=== PATIENT | male | born 1990 | race African-American/Black ===

== ENCOUNTER 2021-02-22 17:48 | Emergency (ER) | payer MEDICAID ==
[~2021-02-22] VITALS: Ht 170.2 cm; Wt 68.2 kg
[2021-02-22 17:58] VITALS: BP 143/100
[2021-02-23] MEDS ORDERED: NO HOME MEDS (02:08)
[2021-02-23] MEDS ORDERED: iohexol 350MG/ML 100ml bottle IV ONE (02:16)
== END 2021-02-22 18:44 | disposition home or self-care (01) ==
LOC: ER 17:49
DX: Z00.8 Encounter for other general examination (principal); F10.129 Alcohol abuse with intoxication, unspecified; Y90.9 Presence of alcohol in blood, level not specified
CPT/HCPCS: 99283; Q9967

== ENCOUNTER 2021-02-22 23:47 | Inpatient (IN) | payer MEDICAID, OTHER ==
[~2021-02-22] VITALS: Ht 167.6 cm; Wt 77.0 kg
[2021-02-23 00:23] LABS: BASOPHILS # (AUTO) 0.2 X10'3 (0-0.2); BASOPHILS % (AUTO) 1.2 % (0-1); EOSINOPHILS # (AUTO) 0.3 X10'3 (0-0.9); EOSINOPHILS % (AUTO) 1.8 % (0-6); HEMATOCRIT 49.3 % (42.0-52.0); HEMOGLOBIN 16.3 g/dl (14.0-17.9); LYMPHOCYTES # (AUTO) 3.4 X10'3 (1.1-4.8); MEAN CORPUSCULAR VOLUME 93.8 FL (78-98); MEAN PLATELET VOLUME 7.6 FL (7.4-10.4); MONOCYTES # (AUTO) 0.9 X10'3 (0-0.9); MONOCYTES % (AUTO) 6.4 % (2-12); NEUTROPHILS % (AUTO) 67.6 % (42-75); PLATELET COUNT 328 X10'3 (140-440); RED BLOOD COUNT 5.25 X10'6 (4.70-6.10); RED CELL DISTRIBUTION WIDTH 13.5 % (11.5-14.5); WHITE BLOOD COUNT 14.8 X10'3 (4.5-11.0)
[2021-02-23 00:31] LABS: ALANINE AMINOTRANSFERASE 40 U/L (12-78); ALBUMIN/GLOBULIN RATIO 1.1 (1.1-1.5); ALKALINE PHOSPHATASE 103 IU/L (46-116); ANION GAP 23 (8-16); ASPARTATE AMINO TRANSFERASE 60 U/L (10-37); BILIRUBIN,TOTAL 0.5 MG/DL (0.1-1.0); BLOOD UREA NITROGEN 14 MG/DL (7-18); BUN/CREATININE RATIO 10.5 (5.4-32.0); CALCIUM 9.8 MG/DL (8.5-10.1); CHLORIDE 98 MMOL/L (99-107); CREATININE 1.33 MG/DL (0.60-1.10); GLUCOSE 116 MG/DL (70-104); POTASSIUM 3.7 MMOL/L (3.5-5.1); SODIUM 140 MMOL/L (135-145); TOTAL CARBON DIOXIDE 18.6 MMOL/L (24-32); TOTAL PROTEIN 9.5 G/DL (6.4-8.2); eGFR 76 ML/MIN
--- NOTE | 2021-02-23 00:37 | NUR ---
THIS IS THE SECOND TIME HIS CARDIAC LEAD FELL OFF. HE IS ROLLING AROUND IN BED TOO MUCH. HE IS UNCOMFORTABLE. HE HAS CRAMPS IN HIS LEGS.
[2021-02-23 00:40] LABS: MAGNESIUM 2.1 MG/DL (1.5-2.4)
[2021-02-23 01:35] LABS: D-DIMER 0.52 MG/L FEU (0-0.50); PARTIAL THROMBOPLASTIN TIME 31 SECONDS (22-32)
[2021-02-23] MEDS ORDERED: NO HOME MEDS (02:08)
--- NOTE | 2021-02-23 02:24 | NUR ---
PT GOING TO CT VIA STRETCHER AND OFFICER IS WITH THE PATIENT. PT CUFFED TO SIDERAIL.
[2021-02-23] MEDS ORDERED: diphenhydrAMINE 25mg capsule PO PRN (02:30)
[2021-02-23] MEDS ORDERED: acetaminophen 650mg rectal suppository RC PRN (02:30)
[2021-02-23] MEDS ORDERED: HYDROcodone/acetaminophen 5mg/325mg tablet PO PRN (02:30)
[2021-02-23] MEDS ORDERED: bisacodyl 10mg suppository rectal RC PRN (02:30)
[2021-02-23] MEDS ORDERED: mag hydrox/Alum hydrox/simeth 30ml oral suspension PO PRN (02:30)
[2021-02-23] MEDS ORDERED: ondansetron/PF 4mg/2ml inj IV PRN (02:30)
[2021-02-23] MEDS ORDERED: diphenhydrAMINE 50 mg/ml inj IV PRN (02:30)
[2021-02-23] MEDS ORDERED: magnesium hydroxide 30ml (MOM) UD suspension PO PRN (02:30)
[2021-02-23] MEDS ORDERED: morphine 2 MG/ML inj. syringe IV PRN ×2 (02:30)
[2021-02-23] MEDS ORDERED: acetaminophen 325mg tablet PO PRN (02:30)
[2021-02-23] MEDS ORDERED: ringers solution, lactated 500ml IV solution IV ONE (02:45)
[2021-02-23 03:04] LABS: CREATINE KINASE 991 U/L (39-308); PHOSPHORUS 4.5 MG/DL (2.3-4.5)
[2021-02-23 03:05] LABS: HEMOGLOBIN A1C 5.4 % (4.5-6.2)
[2021-02-23] MEDS: dextrose 5%-1/2 normal saline 1,000 ML IV SCH ×2 (03:20→14:30)
[2021-02-23 04:41] LABS: CLARITY,URINE CLEAR (Clear); COLOR,URINE YELLOW (Yellow); GLUCOSE, URINE NEGATIVE (Neg); KETONES,URINE 40 mg/dl (Neg); LEUKOCYTE ESTERASE ,URINE NEGATIVE (Neg); NITRITES, URINE NEGATIVE (Neg); OCCULT BLOOD,URINE NEGATIVE (Neg); PROTEIN,URINE TRACE mg/dl (Neg); UROBILINOGEN,URINE 0.2 E.U/dL (0.2-1.0)
[2021-02-23 04:51] LABS: UA COLLECTION TYPE VOIDED
[2021-02-23 04:53] LABS: BACTERIA,URINE NONE SEEN /HPF (Neg); RBC,URINE NONE SEEN /HPF (0-2); SQUAMOUS EPITHELIAL CELL,UR FEW /LPF (FEW); WBC,URINE NONE SEEN /HPF (0-4)
[2021-02-23 04:55] LABS: URINE AMPHETAMINE SCREEN NEGATIVE (Neg); URINE BARBITUATE SCREEN NEGATIVE (Neg); URINE BENZODIAZEPINES SCREEN NEGATIVE (Neg); URINE CANNABINOID SCREEN POSITIVE (Neg); URINE COCAINE SCREEN POSITIVE (Neg); URINE METHADONE SCREEN NEGATIVE (Neg); URINE OPIATE SCREEN POSITIVE (Neg); URINE PHENCYCLIDINE SCREEN NEGATIVE (Neg)
[2021-02-23] MEDS: pantoprazole 40mg Tablet.DR PO SCH (08:33)
[2021-02-23] MEDS: docusate sod 100mg capsule PO SCH ×2 (08:33→20:15)
[2021-02-23] MEDS: heparin, porcine 5000 units/ml vial SQ SCH ×2 (08:34→20:16)
--- NOTE | 2021-02-23 09:59 | NUR ---
Pt resting quietly. Office continues at bedside.
--- NOTE | 2021-02-23 10:37 | NUR ---
patient does not have pacer pads on upon receiving report patient denies pain, sob, cp, numbness tingling
--- NOTE | 2021-02-23 11:08 | NUR ---
PATIETN IN SB/ SR WITH FREQUENT PAUSES. ISSUE WITH MONITORS AND UNABLE TO PRINT AT THIS TIME.
--- NOTE | 2021-02-23 12:00 | NUR ---
LOWEST HR OBSERVED HAS BEEN 42 CONTINUES WITH PAUSES. HOURLY SALES STAFF REMAINS AT BEDSIDE, PATIETN IS CUFFED TO THE BED, HOURLY CHECKS OF WRIST: CSM WNL, STRON G REGULAR RADIAL PULSES PATIETN AXOX4, POLITE NPO FOR POTENTIAL CARDIAC INTERVENTION
--- NOTE | 2021-02-23 14:07 | NUR ---
Patient in room ED 3. I have received report from Gela PROCESS PUMPER Nurse and had the opportunity to ask questions and assume patient care.
--- NOTE | 2021-02-23 14:07 | NUR ---
PHONE REPORT TO YANN GILBERT PCU PATIENT TO GO TO ROOM 1756A
--- NOTE | 2021-02-23 14:33 | NUR ---
PATIENT TO ROOM 3010A WITH TOI LERNER WITH [facility]. SR WITH PAUSES, PATIETN IS ASYMPTOMATIC: DENIES PAIN, CP, SOB. PATIENT HAS NO VALUABES, NO POSSESIONS OTHER THAN CLOTHES REPORT WAS CALLED TO TATIANA LERNER PCU
[2021-02-23 15:00] VITALS: BP 122/76
--- NOTE | 2021-02-23 15:05 | NUR ---
Patient orientated to room and facility. Pt in bed VSS, guard in room. Will continue to monitor.
--- NOTE | 2021-02-23 15:46 | NUR ---
Paged Dr. Lang PAGER ID: [phone] MESSAGE: Re: Jose Proctor RM 3010 Pt NPO, May we have a Diet and DC fluids? Please Advise Johnna LERNER [phone] Addendum: 02/23/21 at 1548 by Johnna Arias RN Dr. Nava responded via telephone. New Orders Reg Diet and DC fluids. Will continue to monitor.
[2021-02-23 18:00] VITALS: BP 134/69
--- NOTE | 2021-02-23 18:16 | NUR ---
Problems reprioritized. Patient report given, questions answered & plan of care reviewed with Pam LERNER.
--- NOTE | 2021-02-23 18:18 | NUR ---
Patient in room PCU 3010. I have received report from Johnna LERNER and had the opportunity to ask questions and assume patient care.
[2021-02-23 22:00] VITALS: BP 138/80
[2021-02-24 02:00] VITALS: BP 129/77
--- NOTE | 2021-02-24 06:34 | NUR ---
Patient in room PCU 3010. I have received report from Pam LERNER and had the opportunity to ask questions and assume patient care.
--- NOTE | 2021-02-24 06:38 | NUR ---
Problems reprioritized. Patient report given, questions answered & plan of care reviewed with Johnna LERNER.
[2021-02-24] MEDS: pantoprazole 40mg Tablet.DR PO SCH (07:33)
[2021-02-24] MEDS: docusate sod 100mg capsule PO SCH (07:33)
[2021-02-24] MEDS: heparin, porcine 5000 units/ml vial SQ SCH (07:34)
[2021-02-24 08:05] LABS: BASOPHILS % (AUTO) 0.6 % (0-1); EOSINOPHILS # (AUTO) 0.1 X10'3 (0-0.9); EOSINOPHILS % (AUTO) 2.4 % (0-6); HEMATOCRIT 42.2 % (42.0-52.0); HEMOGLOBIN 14.4 g/dl (14.0-17.9); LYMPHOCYTES # (AUTO) 1.7 X10'3 (1.1-4.8); LYMPHOCYTES % (AUTO) 36.8 % (21-51); MEAN CORPUSCULAR HEMOGLOBIN 31.1 PG (27.0-31.0); MEAN CORPUSCULAR VOLUME 91.4 FL (78-98); MEAN PLATELET VOLUME 7.8 FL (7.4-10.4); MONOCYTES # (AUTO) 0.6 X10'3 (0-0.9); MONOCYTES % (AUTO) 12.8 % (2-12); NEUTROPHILS # (AUTO) 2.2 X10'3 (1.8-7.7); NEUTROPHILS % (AUTO) 47.4 % (42-75); PLATELET COUNT 245 X10'3 (140-440); RED BLOOD COUNT 4.61 X10'6 (4.70-6.10); RED CELL DISTRIBUTION WIDTH 13.5 % (11.5-14.5); WHITE BLOOD COUNT 4.7 X10'3 (4.5-11.0)
[2021-02-24 08:16] LABS: ALANINE AMINOTRANSFERASE 56 U/L (12-78); ALBUMIN 3.6 G/DL (3.4-5.0); ALKALINE PHOSPHATASE 77 IU/L (46-116); ANION GAP 12 (8-16); ASPARTATE AMINO TRANSFERASE 66 U/L (10-37); BILIRUBIN,TOTAL 1.1 MG/DL (0.1-1.0); BLOOD UREA NITROGEN 14 MG/DL (7-18); BUN/CREATININE RATIO 12.3 (5.4-32.0); CHLORIDE 105 MMOL/L (99-107); CHOL/HDL RATIO 2.9 (0.00-4.99); CHOLESTEROL 169 MG/DL (0-200); CREATININE 1.14 MG/DL (0.60-1.10); GLUCOSE 84 MG/DL (70-104); HDL CHOLESTEROL 58 MG/DL (35-60); LDL CHOLESTEROL 93 MG/DL (50-100); POTASSIUM 4.1 MMOL/L (3.5-5.1); SODIUM 144 MMOL/L (135-145); TOTAL PROTEIN 7.3 G/DL (6.4-8.2); TRIGLYCERIDES 87 MG/DL (20-135); eGFR > 90 ML/MIN
--- NOTE | 2021-02-24 11:38 | NUR ---
Patient was dressed and escorted out via ems helicopter pilot to ems helicopter pilot car. Patient had no belongings. All paperwork were collected and signed and sent with guard to go to [facility].
== END 2021-02-24 11:40 | DRG 641 ==
LOC: ER 23:48 → EEVIPCON 23:48 → UNDOADMIN 02-23 02:30 → ED HOLD 02-23 02:30 → PCU 3S 02-23 15:00 → ED HOLD 02-23 15:00 → UNDODISIN 02-24 11:40
PROVIDERS: ADMIT Family Medicine; ATTEND Family Medicine
PROC: B32T1ZZ Computerized Tomography (CT Scan) of Left Pulmonary Artery using Low Osmolar Contrast (ICD-10-PCS; principal; 2021-02-23)
PROC: B3201ZZ Computerized Tomography (CT Scan) of Thoracic Aorta using Low Osmolar Contrast (ICD-10-PCS; 2021-02-23)
PROC: B32S1ZZ Computerized Tomography (CT Scan) of Right Pulmonary Artery using Low Osmolar Contrast (ICD-10-PCS; 2021-02-23)
DX: E86.0 Dehydration (principal); M62.82 Rhabdomyolysis; F14.129 Cocaine abuse with intoxication, unspecified; R00.1 Bradycardia, unspecified; F12.929 Cannabis use, unspecified with intoxication, unspecified
CPT/HCPCS: 36415; 71045; 71275; 80053; 80061; 80305; 81001; 82550; 83036; 83735; 83880; 84100; 84443; 84484; 85025; 85379; 85610; 85730; 87081; 93005; 93306; 93308; 99285; G0378; J1644; J7120